=== PATIENT | male | born 1955 | race Caucasian/White ===

== ENCOUNTER 2021-02-16 20:27 | Inpatient (IN) ==
[2021-02-16] MEDS ORDERED: 0.9 % Sodium Chloride 500 ML IV ONE (22:12)
[2021-02-16 22:19] LABS: Basophils # 0.1 K/mcL (0.0-0.2); Basophils % 0.5 %; Eosinophils # 0.1 K/mcL (0.0-0.6); Eosinophils % 1.2 %; Hematocrit 40.1 % (37.5-50.1); Hemoglobin 13.8 g/dL (12.9-16.9); Immature Granulocytes % 0.5 % (0-4); Lymphocytes # 2.6 K/mcL (0.6-4.6); Lymphocytes % 24.6 %; Mean Corpuscular HGB Conc 34.4 g/dL (31.6-35.5); Mean Corpuscular Hemoglobin 32.6 pg (28.0-33.3); Mean Corpuscular Volume 94.8 fL (83.0-100.0); Mean Platelet Volume 11.1 fL (9.4-12.4); Monocytes # 0.8 K/mcL (0.0-1.3); Monocytes % 7.5 %; Neutrophils # 6.9 K/mcL (1.6-8.9); Platelet Count 166 K/mcL (140-400); Red Blood Count 4.23 M/mcL (4.19-5.50); Red Cell Distribution Width 12.9 % (11.5-14.5); Segmented Neutrophils % 65.7 %; White Blood Count 10.4 K/mcL (4.3-11.1)
[2021-02-16 22:34] LABS: Alanine Aminotransferase 9 Units/L (7-52); Albumin 3.6 g/dL (3.5-5.7); Albumin/Globulin Ratio 1.2 (1.1-2.2); Alkaline Phosphatase 76 Units/L (34-104); Aspartate Amino Transferase 18 Units/L (13-39); BUN/Creatinine Ratio 12 (6-26); Bilirubin,Direct 0.3 mg/dL (0.0-0.2); Bilirubin,Indirect 0.7 mg/dL (0.0-1.0); Blood Urea Nitrogen 8 mg/dL (8-23); Calcium 9.5 mg/dL (8.6-10.3); Carbon Dioxide 24 mEq/L (23-29); Chloride 99 mEq/L (98-107); Globulin 2.9 g/dL (2.4-3.5); Glucose 100 mg/dL (70-105); Lipase 8 Units/L (11-82); Osmolality,Calculated 268 (280-300); Potassium 4.3 mEq/L (3.5-5.1); Sodium 130 mEq/L (136-145); Total Protein 6.5 g/dL (6.4-8.9); eGFR For African Americans > 60 (> 60); eGFR For Non-African Americans > 60 (> 60)
[2021-02-16] MEDS ORDERED: Isovue-370 500 ML BOTTLE IVP ONE (23:38)
[2021-02-16] MEDS ORDERED: Morphine Sulfate 2 MG/ML SYRINGE IVP ONE (23:39)
[2021-02-16 23:53] LABS: Bilirubin,Urine Negative (Negative); Blood,Urine Negative (Negative); Clarity,Urine Clear (Clear); Color,Urine Light-Yellow (Yellow); Glucose,Urine (UA) Normal (Normal); Ketones,Urine Negative (Negative); Leukocyte Esterase,Urine Negative (Negative); Nitrite,Urine Negative (Negative); Protein,Urine Negative (Neg-Trace); Specific Gravity,Urine 1.013 (1.010-1.025); Urobilinogen,Urine Normal (Normal)
[2021-02-17 02:04] LABS: INR 1.2; Prothrombin Time 13.2 Seconds (9.4-12.1)
[2021-02-17] MEDS ORDERED: Naloxone 0.4 MG/ML INJ IVP PRN ×2 (02:26→13:53)
[2021-02-17] MEDS ORDERED: cefTRIAXone 2,000 MG in Water for inj. (sterile) 20 ML IVP SCH (03:00)
[2021-02-17] MEDS ORDERED: Morphine Sulfate 2 MG/ML SYRINGE IVP ONE (03:42)
[2021-02-17] MEDS ORDERED: Ringers Solution, Lactated 500 ML IVC SCH (06:00)
[2021-02-17] MEDS ORDERED: Pantoprazole 40 MG VIAL IVP SCH (06:30)
[2021-02-17 07:22] LABS: Hemoglobin 14.4 g/dL (12.9-16.9); Mean Corpuscular HGB Conc 35.1 g/dL (31.6-35.5); Mean Corpuscular Hemoglobin 33.4 pg (28.0-33.3); Mean Corpuscular Volume 95.1 fL (83.0-100.0); Platelet Count 170 K/mcL (140-400); Red Blood Count 4.31 M/mcL (4.19-5.50); Red Cell Distribution Width 12.7 % (11.5-14.5)
[2021-02-17 07:43] LABS: BUN/Creatinine Ratio 11 (6-26); Blood Urea Nitrogen 8 mg/dL (8-23); Calcium 9.2 mg/dL (8.6-10.3); Carbon Dioxide 23 mEq/L (23-29); Chloride 99 mEq/L (98-107); Glucose 110 mg/dL (70-105); Magnesium 1.8 mg/dL (1.6-2.6); Osmolality,Calculated 269 (280-300); Potassium 4.3 mEq/L (3.5-5.1); Sodium 130 mEq/L (136-145); eGFR For African Americans > 60 (> 60); eGFR For Non-African Americans > 60 (> 60)
[2021-02-17] MEDS ORDERED: 0.9 % Sodium Chloride 1,000 ML IVC SCH (09:30)
[2021-02-17] MEDS ORDERED: Ketorolac 15 MG/ML VIAL IVP ONE (09:37)
[2021-02-17] MEDS ORDERED: Ondansetron 4 MG/2 ML VIAL IVP PRN (09:57)
[2021-02-17] MEDS ORDERED: *HR* Propofol 200 MG/20 ML VIAL IVP ONE (11:18)
[2021-02-17] MEDS ORDERED: *HR* FentaNYL (PF) 100 MCG/2 ML VIAL ONE ×2 (11:18→12:07)
[2021-02-17] MEDS ORDERED: *HR* Rocuronium Bromide 50 MG/5 ML VIAL ONE (11:19)
[2021-02-17] MEDS ORDERED: Ondansetron 4 MG/2 ML VIAL ONE (11:19)
[2021-02-17] MEDS ORDERED: Lidocaine HCL 4 ML Topical Solution (Laryng-O-Jet Kit Sterile Pak) TP ONE ×2 (11:19→16:05)
[2021-02-17] MEDS ORDERED: Lidocaine -MPF 2% 5 ML VIAL ONE (11:19)
[2021-02-17] MEDS ORDERED: *HR* Midazolam HCl 2 MG/2 ML VIAL ONE (11:23)
[2021-02-17] MEDS ORDERED: Ipratropium/Albuterol Neb 3 ML ONE (11:29)
[2021-02-17] MEDS ORDERED: Ipratropium/Albuterol Neb 3 ML IH ONE (11:31)
[2021-02-17] MEDS ORDERED: *HR* Vasopressin 20 UNIT/ML VIAL ONE (11:42)
[2021-02-17] MEDS ORDERED: Albumin Human 5% 12.5 GM/250 ML IV.SOLN ONE (11:42)
[2021-02-17] MEDS ORDERED: Sugammadex Sodium 200 MG/2 ML VIAL IV ONE (12:38)
[2021-02-17] MEDS ORDERED: *HR* HYDROmorphone (PF) 1 MG/ML SYRINGE IVP PRN (12:51)
[2021-02-17] MEDS: 0.9 % Sodium Chloride 1,000 ML IVC SCH (15:26)
[2021-02-17] MEDS: *HR* Heparin 5,000 UNIT/ML VIAL SQ SCH (17:46)
[2021-02-17] MEDS ORDERED: *HR* Heparin 5,000 UNIT/ML VIAL SQ SCH (18:00)
[2021-02-17] MEDS ORDERED: Ketorolac 30 MG/ML VIAL IM PRN (18:40)
[2021-02-17] MEDS: *HR* HYDROmorphone (PF) 1 MG/ML SYRINGE IVP PRN (19:20)
[2021-02-18] MEDS: 0.9 % Sodium Chloride 1,000 ML IVC SCH ×3 (00:12→20:56)
[2021-02-18 01:33] LABS: Hematocrit 41.9 % (37.5-50.1); Hemoglobin 14.3 g/dL (12.9-16.9); Mean Corpuscular HGB Conc 34.1 g/dL (31.6-35.5); Mean Corpuscular Hemoglobin 32.6 pg (28.0-33.3); Mean Corpuscular Volume 95.4 fL (83.0-100.0); Mean Platelet Volume 11.6 fL (9.4-12.4); Platelet Count 155 K/mcL (140-400); Red Blood Count 4.39 M/mcL (4.19-5.50); Red Cell Distribution Width 12.7 % (11.5-14.5); White Blood Count 9.1 K/mcL (4.3-11.1)
[2021-02-18 01:53] LABS: BUN/Creatinine Ratio 17 (6-26); Blood Urea Nitrogen 14 mg/dL (8-23); Calcium 8.7 mg/dL (8.6-10.3); Carbon Dioxide 20 mEq/L (23-29); Chloride 102 mEq/L (98-107); Glucose 132 mg/dL (70-105); Magnesium 1.6 mg/dL (1.6-2.6); Osmolality,Calculated 276 (280-300); Phosphorous 4.2 mg/dL (2.7-4.5); Potassium 4.6 mEq/L (3.5-5.1); Sodium 132 mEq/L (136-145); eGFR For African Americans > 60 (> 60); eGFR For Non-African Americans > 60 (> 60)
[2021-02-18] MEDS: Pantoprazole 40 MG VIAL IVP SCH (05:42)
[2021-02-18] MEDS: *HR* HYDROmorphone (PF) 1 MG/ML SYRINGE IVP PRN ×2 (05:42→10:56)
[2021-02-18] MEDS: *HR* Heparin 5,000 UNIT/ML VIAL SQ SCH ×2 (05:42→18:33)
[2021-02-18] MEDS ORDERED: Chloraseptic Spray 177 ML BOTTLE MM PRN (08:26)
[2021-02-19] MEDS: *HR* HYDROmorphone (PF) 1 MG/ML SYRINGE IVP PRN ×3 (01:45→08:03)
[2021-02-19] MEDS: Pantoprazole 40 MG VIAL IVP SCH (05:30)
[2021-02-19] MEDS: *HR* Heparin 5,000 UNIT/ML VIAL SQ SCH ×2 (05:30→16:58)
[2021-02-19 06:29] LABS: Hematocrit 38.3 % (37.5-50.1); Hemoglobin 13.1 g/dL (12.9-16.9); Mean Corpuscular HGB Conc 34.2 g/dL (31.6-35.5); Mean Corpuscular Hemoglobin 32.9 pg (28.0-33.3); Mean Corpuscular Volume 96.2 fL (83.0-100.0); Mean Platelet Volume 11.9 fL (9.4-12.4); Platelet Count 140 K/mcL (140-400); Red Blood Count 3.98 M/mcL (4.19-5.50); Red Cell Distribution Width 12.8 % (11.5-14.5); White Blood Count 10.9 K/mcL (4.3-11.1)
[2021-02-19] MEDS: 0.9 % Sodium Chloride 1,000 ML IVC SCH (06:36)
[2021-02-19 07:59] LABS: Alanine Aminotransferase 6 Units/L (7-52); Albumin 3.1 g/dL (3.5-5.7); Albumin/Globulin Ratio 1.1 (1.1-2.2); Alkaline Phosphatase 46 Units/L (34-104); Aspartate Amino Transferase 12 Units/L (13-39); BUN/Creatinine Ratio 25 (6-26); Bilirubin,Direct 0.3 mg/dL (0.0-0.2); Bilirubin,Indirect 0.8 mg/dL (0.0-1.0); Bilirubin,Total 1.1 mg/dL (0.3-1.0); Blood Urea Nitrogen 17 mg/dL (8-23); Calcium 9.1 mg/dL (8.6-10.3); Carbon Dioxide 23 mEq/L (23-29); Chloride 108 mEq/L (98-107); Globulin 2.7 g/dL (2.4-3.5); Glucose 97 mg/dL (70-105); Magnesium 1.9 mg/dL (1.6-2.6); Osmolality,Calculated 275 (280-300); Phosphorous 2.7 mg/dL (2.7-4.5); Potassium 4.3 mEq/L (3.5-5.1); Sodium 132 mEq/L (136-145); Total Protein 5.8 g/dL (6.4-8.9); eGFR For African Americans > 60 (> 60); eGFR For Non-African Americans > 60 (> 60)
[2021-02-19] MEDS: Spironolactone 25 MG TABLET GTUBE SCH (10:47)
[2021-02-19] MEDS: Ketorolac 30 MG/ML VIAL IM PRN ×2 (10:48→16:56)
[2021-02-19] MEDS: Ipratropium/Albuterol Neb 3 ML IH SCH ×3 (10:58→19:34)
[2021-02-19] MEDS: Albumin 25% 25gram/100mL 25 GM/100 ML IV.SOLN IVPB SCH ×2 (16:57→22:11)
[2021-02-19] MEDS: Furosemide 20 MG/2 ML VIAL IVP SCH (16:57)
[2021-02-20] MEDS: Ketorolac 30 MG/ML VIAL IM PRN ×3 (03:15→17:29)
[2021-02-20] MEDS: Ipratropium/Albuterol Neb 3 ML IH SCH ×4 (03:52→20:20)
[2021-02-20 04:48] LABS: Basophils % 0.2 %; Eosinophils # 0.1 K/mcL (0.0-0.6); Hematocrit 33.3 % (37.5-50.1); Immature Granulocytes % 0.6 % (0-4); Lymphocytes # 1.6 K/mcL (0.6-4.6); Lymphocytes % 19.7 %; Mean Corpuscular Hemoglobin 32.1 pg (28.0-33.3); Mean Corpuscular Volume 97.1 fL (83.0-100.0); Mean Platelet Volume 11.7 fL (9.4-12.4); Monocytes % 11.9 %; Neutrophils # 5.5 K/mcL (1.6-8.9); Platelet Count 126 K/mcL (140-400); Red Blood Count 3.43 M/mcL (4.19-5.50); Red Cell Distribution Width 12.9 % (11.5-14.5); Segmented Neutrophils % 66.6 %; White Blood Count 8.3 K/mcL (4.3-11.1)
[2021-02-20 04:59] LABS: Alanine Aminotransferase 5 Units/L (7-52); Albumin 3.3 g/dL (3.5-5.7); Albumin/Globulin Ratio 1.3 (1.1-2.2); Alkaline Phosphatase 35 Units/L (34-104); Aspartate Amino Transferase 10 Units/L (13-39); BUN/Creatinine Ratio 31 (6-26); Bilirubin,Total 1.4 mg/dL (0.3-1.0); Blood Urea Nitrogen 25 mg/dL (8-23); Calcium 9.2 mg/dL (8.6-10.3); Carbon Dioxide 23 mEq/L (23-29); Chloride 103 mEq/L (98-107); Globulin 2.5 g/dL (2.4-3.5); Glucose 110 mg/dL (70-105); Magnesium 2.1 mg/dL (1.6-2.6); Osmolality,Calculated 283 (280-300); Phosphorous 3.1 mg/dL (2.7-4.5); Potassium 3.9 mEq/L (3.5-5.1); Sodium 134 mEq/L (136-145); Total Protein 5.8 g/dL (6.4-8.9); eGFR For African Americans > 60 (> 60); eGFR For Non-African Americans > 60 (> 60)
[2021-02-20] MEDS: Pantoprazole 40 MG VIAL IVP SCH (05:19)
[2021-02-20] MEDS: *HR* Heparin 5,000 UNIT/ML VIAL SQ SCH ×2 (05:20→17:22)
[2021-02-20] MEDS: Albumin 25% 25gram/100mL 25 GM/100 ML IV.SOLN IVPB SCH ×2 (09:40→20:40)
[2021-02-20] MEDS: Spironolactone 25 MG TABLET GTUBE SCH (09:40)
[2021-02-20] MEDS: Furosemide 20 MG/2 ML VIAL IVP SCH (09:41)
[2021-02-21 03:21] LABS: Hematocrit 32.7 % (37.5-50.1); Mean Corpuscular HGB Conc 33.6 g/dL (31.6-35.5); Mean Corpuscular Hemoglobin 32.6 pg (28.0-33.3); Mean Platelet Volume 11.1 fL (9.4-12.4); Platelet Count 160 K/mcL (140-400); Red Blood Count 3.37 M/mcL (4.19-5.50); Red Cell Distribution Width 12.7 % (11.5-14.5); White Blood Count 8.2 K/mcL (4.3-11.1)
[2021-02-21 03:35] LABS: Alanine Aminotransferase 5 Units/L (7-52); Albumin 3.7 g/dL (3.5-5.7); Albumin/Globulin Ratio 1.6 (1.1-2.2); Alkaline Phosphatase 37 Units/L (34-104); Aspartate Amino Transferase 12 Units/L (13-39); BUN/Creatinine Ratio 33 (6-26); Bilirubin,Direct 0.7 mg/dL (0.0-0.2); Bilirubin,Indirect 1.1 mg/dL (0.0-1.0); Bilirubin,Total 1.8 mg/dL (0.3-1.0); Blood Urea Nitrogen 28 mg/dL (8-23); Calcium 9.3 mg/dL (8.6-10.3); Carbon Dioxide 23 mEq/L (23-29); Chloride 97 mEq/L (98-107); Globulin 2.3 g/dL (2.4-3.5); Glucose 75 mg/dL (70-105); Osmolality,Calculated 284 (280-300); Potassium 3.9 mEq/L (3.5-5.1); Sodium 135 mEq/L (136-145); eGFR For African Americans > 60 (> 60); eGFR For Non-African Americans > 60 (> 60)
[2021-02-21] MEDS: Ipratropium/Albuterol Neb 3 ML IH SCH ×2 (03:49→09:12)
[2021-02-21] MEDS: *HR* Heparin 5,000 UNIT/ML VIAL SQ SCH ×3 (04:56→18:53)
[2021-02-21] MEDS: Pantoprazole 40 MG VIAL IVP SCH ×2 (04:58→05:00)
[2021-02-21] MEDS: Ketorolac 30 MG/ML VIAL IM PRN ×2 (05:12→18:53)
[2021-02-21] MEDS ORDERED: Spironolactone 25 MG TABLET PO SCH (09:00)
[2021-02-21] MEDS: Furosemide 20 MG/2 ML VIAL IVP SCH (09:10)
[2021-02-21] MEDS: Spironolactone 25 MG TABLET PO SCH (09:10)
[2021-02-21] MEDS: Albumin 25% 25gram/100mL 25 GM/100 ML IV.SOLN IVPB SCH ×2 (09:11→21:05)
[2021-02-21] MEDS: Cyanocobalamin (B-12) 1,000 MCG TABLET PO SCH (09:11)
[2021-02-22] MEDS: Ketorolac 30 MG/ML VIAL IM PRN ×2 (00:34→08:23)
[2021-02-22] MEDS: Pantoprazole 40 MG VIAL IVP SCH (05:12)
[2021-02-22 06:42] LABS: Basophils % 0.3 %; Eosinophils # 0.2 K/mcL (0.0-0.6); Eosinophils % 2.2 %; Hematocrit 33.6 % (37.5-50.1); Hemoglobin 11.3 g/dL (12.9-16.9); Immature Granulocytes % 0.5 % (0-4); Lymphocytes # 1.5 K/mcL (0.6-4.6); Mean Corpuscular HGB Conc 33.6 g/dL (31.6-35.5); Mean Corpuscular Hemoglobin 32.3 pg (28.0-33.3); Mean Platelet Volume 11.4 fL (9.4-12.4); Monocytes # 1.2 K/mcL (0.0-1.3); Monocytes % 13.5 %; Neutrophils # 5.9 K/mcL (1.6-8.9); Platelet Count 179 K/mcL (140-400); Red Cell Distribution Width 12.3 % (11.5-14.5); Segmented Neutrophils % 66.5 %; White Blood Count 8.8 K/mcL (4.3-11.1)
[2021-02-22 07:04] LABS: Alanine Aminotransferase 10 Units/L (7-52); Albumin 3.6 g/dL (3.5-5.7); Albumin/Globulin Ratio 1.6 (1.1-2.2); Alkaline Phosphatase 40 Units/L (34-104); Aspartate Amino Transferase 19 Units/L (13-39); BUN/Creatinine Ratio 35 (6-26); Bilirubin,Direct 0.8 mg/dL (0.0-0.2); Bilirubin,Indirect 0.9 mg/dL (0.0-1.0); Bilirubin,Total 1.7 mg/dL (0.3-1.0); Blood Urea Nitrogen 27 mg/dL (8-23); Calcium 9.1 mg/dL (8.6-10.3); Carbon Dioxide 24 mEq/L (23-29); Chloride 98 mEq/L (98-107); Globulin 2.2 g/dL (2.4-3.5); Glucose 96 mg/dL (70-105); Osmolality,Calculated 277 (280-300); Potassium 3.6 mEq/L (3.5-5.1); Sodium 131 mEq/L (136-145); Total Protein 5.8 g/dL (6.4-8.9); eGFR For African Americans > 60 (> 60); eGFR For Non-African Americans > 60 (> 60)
[2021-02-22] MEDS: Albumin 25% 25gram/100mL 25 GM/100 ML IV.SOLN IVPB SCH ×2 (08:22→21:48)
[2021-02-22] MEDS: polyethylene glycoL 3350 17 GM POWD.PACK PO SCH (08:24)
[2021-02-22] MEDS: Cyanocobalamin (B-12) 1,000 MCG TABLET PO SCH (08:24)
[2021-02-22] MEDS: Spironolactone 25 MG TABLET PO SCH (08:24)
[2021-02-22] MEDS: Furosemide 20 MG/2 ML VIAL IVP SCH (08:24)
[2021-02-22] MEDS: *HR* Heparin 5,000 UNIT/ML VIAL SQ SCH (17:57)
[2021-02-23] MEDS: *HR* Heparin 5,000 UNIT/ML VIAL SQ SCH ×2 (06:05→17:49)
[2021-02-23] MEDS: Pantoprazole 40 MG VIAL IVP SCH (06:05)
[2021-02-23 06:56] LABS: Alanine Aminotransferase 9 Units/L (7-52); Albumin 3.6 g/dL (3.5-5.7); Albumin/Globulin Ratio 1.7 (1.1-2.2); Alkaline Phosphatase 39 Units/L (34-104); Aspartate Amino Transferase 15 Units/L (13-39); BUN/Creatinine Ratio 38 (6-26); Bilirubin,Direct 0.9 mg/dL (0.0-0.2); Bilirubin,Indirect 0.9 mg/dL (0.0-1.0); Bilirubin,Total 1.8 mg/dL (0.3-1.0); Blood Urea Nitrogen 26 mg/dL (8-23); Calcium 9.2 mg/dL (8.6-10.3); Carbon Dioxide 20 mEq/L (23-29); Chloride 97 mEq/L (98-107); Globulin 2.1 g/dL (2.4-3.5); Glucose 100 mg/dL (70-105); Osmolality,Calculated 273 (280-300); Potassium 3.9 mEq/L (3.5-5.1); Sodium 129 mEq/L (136-145); Total Protein 5.7 g/dL (6.4-8.9); eGFR For African Americans > 60 (> 60); eGFR For Non-African Americans > 60 (> 60)
[2021-02-23] MEDS: Furosemide 20 MG/2 ML VIAL IVP SCH (07:49)
[2021-02-23] MEDS: Spironolactone 25 MG TABLET PO SCH (07:49)
[2021-02-23] MEDS: polyethylene glycoL 3350 17 GM POWD.PACK PO SCH ×2 (07:50→20:25)
[2021-02-23] MEDS: Albumin 25% 25gram/100mL 25 GM/100 ML IV.SOLN IVPB SCH ×3 (07:50→22:43)
[2021-02-23] MEDS: Cyanocobalamin (B-12) 1,000 MCG TABLET PO SCH (07:51)
[2021-02-23 09:43] LABS: Basophils % 0.3 %; Eosinophils # 0.1 K/mcL (0.0-0.6); Eosinophils % 0.8 %; Hematocrit 34.4 % (37.5-50.1); Hemoglobin 11.5 g/dL (12.9-16.9); Immature Granulocytes % 0.8 % (0-4); Lymphocytes # 1.5 K/mcL (0.6-4.6); Lymphocytes % 12.8 %; Mean Corpuscular HGB Conc 33.4 g/dL (31.6-35.5); Mean Corpuscular Hemoglobin 31.9 pg (28.0-33.3); Mean Corpuscular Volume 95.6 fL (83.0-100.0); Mean Platelet Volume 11.5 fL (9.4-12.4); Monocytes # 1.1 K/mcL (0.0-1.3); Monocytes % 9.7 %; Neutrophils # 8.8 K/mcL (1.6-8.9); Platelet Count 194 K/mcL (140-400); Red Cell Distribution Width 12.1 % (11.5-14.5); Segmented Neutrophils % 75.6 %; White Blood Count 11.6 K/mcL (4.3-11.1)
[2021-02-23] MEDS: Ondansetron 4 MG/2 ML VIAL IVP PRN (16:29)
[2021-02-24] MEDS: Ondansetron 4 MG/2 ML VIAL IVP PRN ×3 (03:40→22:43)
[2021-02-24] MEDS: *HR* Heparin 5,000 UNIT/ML VIAL SQ SCH ×2 (05:31→18:35)
[2021-02-24 07:11] LABS: Basophils % 0.2 %; Immature Granulocytes % 0.9 % (0-4); Mean Corpuscular Hemoglobin 32.3 pg (28.0-33.3); Monocytes % 9.8 %
[2021-02-24 07:28] LABS: Alanine Aminotransferase 12 Units/L (7-52); Albumin 3.9 g/dL (3.5-5.7); Albumin/Globulin Ratio 1.6 (1.1-2.2); Alkaline Phosphatase 47 Units/L (34-104); Aspartate Amino Transferase 19 Units/L (13-39); BUN/Creatinine Ratio 35 (6-26); Bilirubin,Direct 0.6 mg/dL (0.0-0.2); Bilirubin,Indirect 0.8 mg/dL (0.0-1.0); Bilirubin,Total 1.4 mg/dL (0.3-1.0); Blood Urea Nitrogen 30 mg/dL (8-23); Calcium 9.6 mg/dL (8.6-10.3); Carbon Dioxide 24 mEq/L (23-29); Chloride 94 mEq/L (98-107); Globulin 2.4 g/dL (2.4-3.5); Glucose 103 mg/dL (70-105); Magnesium 2.2 mg/dL (1.6-2.6); Osmolality,Calculated 278 (280-300); Sodium 131 mEq/L (136-145); Total Protein 6.3 g/dL (6.4-8.9); eGFR For African Americans > 60 (> 60); eGFR For Non-African Americans > 60 (> 60)
[2021-02-24 09:02] LABS: Eosinophils # 0.1 K/mcL (0.0-0.6); Eosinophils % 0.5 %; Hemoglobin 13.1 g/dL (12.9-16.9); Lymphocytes # 1.7 K/mcL (0.6-4.6); Lymphocytes % 12.8 %; Mean Corpuscular HGB Conc 33.6 g/dL (31.6-35.5); Mean Corpuscular Volume 96.1 fL (83.0-100.0); Mean Platelet Volume 11.4 fL (9.4-12.4); Monocytes # 1.3 K/mcL (0.0-1.3); Neutrophils # 10.2 K/mcL (1.6-8.9); Platelet Count 262 K/mcL (140-400); Red Blood Count 4.06 M/mcL (4.19-5.50); Red Cell Distribution Width 12.3 % (11.5-14.5); Segmented Neutrophils % 75.8 %; White Blood Count 13.5 K/mcL (4.3-11.1)
[2021-02-24] MEDS: polyethylene glycoL 3350 17 GM POWD.PACK PO SCH ×2 (09:54→21:04)
[2021-02-24] MEDS: Cyanocobalamin (B-12) 1,000 MCG TABLET PO SCH (09:55)
[2021-02-24] MEDS: Spironolactone 25 MG TABLET PO SCH (09:55)
[2021-02-24] MEDS: Furosemide 20 MG/2 ML VIAL IVP SCH (09:59)
[2021-02-24] MEDS: Albumin 25% 25gram/100mL 25 GM/100 ML IV.SOLN IVPB SCH ×3 (10:00→23:57)
[2021-02-24] MEDS: Sennosides 8.6 MG TABLET PO SCH ×2 (11:24→21:04)
[2021-02-24 19:31] VITALS: O2SAT 96
[2021-02-24 23:28] VITALS: PULSE 71
[2021-02-25 05:31] LABS: Basophils % 0.3 %; Eosinophils # 0.1 K/mcL (0.0-0.6); Eosinophils % 1.1 %; Hematocrit 37.4 % (37.5-50.1); Hemoglobin 12.7 g/dL (12.9-16.9); Immature Granulocytes % 0.7 % (0-4); Lymphocytes # 1.6 K/mcL (0.6-4.6); Lymphocytes % 14.4 %; Mean Corpuscular Volume 94.2 fL (83.0-100.0); Monocytes # 1.3 K/mcL (0.0-1.3); Monocytes % 11.5 %; Neutrophils # 7.9 K/mcL (1.6-8.9); Platelet Count 247 K/mcL (140-400); Red Blood Count 3.97 M/mcL (4.19-5.50); Red Cell Distribution Width 12.2 % (11.5-14.5)
[2021-02-25 05:52] LABS: BUN/Creatinine Ratio 41 (6-26); Blood Urea Nitrogen 32 mg/dL (8-23); Calcium 9.5 mg/dL (8.6-10.3); Carbon Dioxide 22 mEq/L (23-29); Chloride 94 mEq/L (98-107); Glucose 97 mg/dL (70-105); Magnesium 2.3 mg/dL (1.6-2.6); Osmolality,Calculated 277 (280-300); Potassium 4.1 mEq/L (3.5-5.1); Sodium 130 mEq/L (136-145); eGFR For African Americans > 60 (> 60); eGFR For Non-African Americans > 60 (> 60)
[2021-02-25] MEDS: *HR* Heparin 5,000 UNIT/ML VIAL SQ SCH (05:52)
[2021-02-25 05:53] LABS: Albumin 3.8 g/dL (3.5-5.7); Albumin/Globulin Ratio 1.5 (1.1-2.2); Bilirubin,Direct 0.5 mg/dL (0.0-0.2); Bilirubin,Indirect 0.6 mg/dL (0.0-1.0); Bilirubin,Total 1.1 mg/dL (0.3-1.0); Globulin 2.5 g/dL (2.4-3.5); Total Protein 6.3 g/dL (6.4-8.9)
[2021-02-25] MEDS ORDERED: Prochlorperazine 10 MG/2 ML VIAL IVP PRN (05:58)
[2021-02-25 07:30] VITALS: BP 127/76; TEMP 97.7
[2021-02-25] MEDS: Sennosides 8.6 MG TABLET PO SCH (10:11)
[2021-02-25] MEDS: Furosemide 20 MG/2 ML VIAL IVP SCH (10:12)
[2021-02-25] MEDS: Cyanocobalamin (B-12) 1,000 MCG TABLET PO SCH (10:12)
[2021-02-25] MEDS: Spironolactone 25 MG TABLET PO SCH (10:12)
[2021-02-25] MEDS: Albumin 25% 25gram/100mL 25 GM/100 ML IV.SOLN IVPB SCH (10:13)
[2021-02-25] MEDS: polyethylene glycoL 3350 17 GM POWD.PACK PO SCH (10:16)
== END 2021-02-25 12:15 | disposition home or self-care (01) | DRG 330 ==
LOC: EMEROOARM 20:27 → 3ANU 20:27 → OBSVTOIN 02-17 02:41 → SUATTDRO 02-17 02:41 → 3ANU 02-17 06:24
PROVIDERS: ADMIT Family Medicine; ATTEND Pharmacist

== ENCOUNTER 2021-12-14 07:32 | Inpatient (IN) ==
[2021-12-14] MEDS ORDERED: Iopamidol - 370 500 ML MLS IVP ONE (07:51)
[2021-12-14 08:19] LABS: Hematocrit 31.6 % (37.5-50.1); Mean Corpuscular HGB Conc 34.8 g/dL (31.6-35.5); Mean Corpuscular Hemoglobin 32.6 pg (28.0-33.3); Mean Corpuscular Volume 93.8 fL (83.0-100.0); Mean Platelet Volume 12.2 fL (9.4-12.4); Platelet Count 210 K/mcL (140-400); Red Blood Count 3.37 M/mcL (4.19-5.50); White Blood Count 5.6 K/mcL (4.3-11.1)
[2021-12-14 09:45] LABS: Alanine Aminotransferase 6 Units/L (7-52); Albumin 4.2 g/dL (3.5-5.7); Albumin/Globulin Ratio 1.2 (1.1-2.2); Alkaline Phosphatase 48 Units/L (34-104); Amylase 24 Units/L (29-103); Aspartate Amino Transferase 23 Units/L (13-39); BUN/Creatinine Ratio 27 (6-26); Bilirubin,Direct 0.2 mg/dL (0.0-0.2); Bilirubin,Indirect 0.9 mg/dL (0.0-1.0); Bilirubin,Total 1.1 mg/dL (0.3-1.0); Blood Urea Nitrogen 61 mg/dL (8-23); Calcium 9.5 mg/dL (8.6-10.3); Carbon Dioxide 27 mEq/L (23-29); Chloride 85 mEq/L (98-107); Globulin 3.4 g/dL (2.4-3.5); Glucose 134 mg/dL (70-105); Lipase < 3 Units/L (11-82); Osmolality,Calculated 279 (280-300); Potassium 4.9 mEq/L (3.5-5.1); Sodium 125 mEq/L (136-145); Total Protein 7.6 g/dL (6.4-8.9); eGFR For African Americans 34 (> 60); eGFR For Non-African Americans 28 (> 60)
[2021-12-14 10:07] LABS: Hypochromasia Present (Not Present); Monocytes # 1.2 K/mcL (0.0-1.3); Neutrophils # 3.4 K/mcL (1.6-8.9)
[2021-12-14 10:08] LABS: Anisocytosis 1+ (Not Present); Platelet Estimate Normal (Normal); Poikilocytosis 1+ (Not Present)
[2021-12-14] MEDS ORDERED: 0.9 % Sodium Chloride 1,000 ML IVC ONE (10:40)
[2021-12-14] MEDS ORDERED: 0.9 % Sodium Chloride 1,000 ML ONE (10:41)
[2021-12-14] MEDS: Ondansetron 4 MG/2 ML VIAL IVP PRN (12:35)
[2021-12-14] MEDS: 0.9 % Sodium Chloride 1,000 ML IVC SCH ×3 (12:54→19:54)
[2021-12-14 13:30] LABS: Calcium 9.2 mg/dL (8.6-10.3); Potassium 4.2 mEq/L (3.5-5.1)
[2021-12-14] MEDS ORDERED: Lidocaine Jelly 6ml 1 APPL/6 ML JEL.PF.APP MM ONE (14:10)
[2021-12-14] MEDS ORDERED: Tetracaine/Benzocaine/Butamben 1 SPRAY AEROSOL MM ONE (14:10)
[2021-12-14] MEDS: *HR* HYDROmorphone (PF) 1 MG/ML SYRINGE IVP PRN ×3 (14:58→19:55)
[2021-12-14] MEDS: Piperacillin/Tazobactam 3.375 GM in 0.9 % Sodium Chloride Mini Bag 100 ML IVPB SCH ×2 (16:40→23:05)
[2021-12-14 21:31] LABS: Calcium 8.9 mg/dL (8.6-10.3); Potassium 4.1 mEq/L (3.5-5.1)
[2021-12-15 02:15] LABS: Eosinophils # 0.1 K/mcL (0.0-0.6); Hematocrit 26.8 % (37.5-50.1); Mean Corpuscular Hemoglobin 31.7 pg (28.0-33.3); Mean Corpuscular Volume 93.4 fL (83.0-100.0); Mean Platelet Volume 11.3 fL (9.4-12.4); Platelet Count 182 K/mcL (140-400); Red Blood Count 2.87 M/mcL (4.19-5.50); Red Cell Distribution Width 13.1 % (11.5-14.5); White Blood Count 5.3 K/mcL (4.3-11.1)
[2021-12-15 02:32] LABS: Calcium 8.8 mg/dL (8.6-10.3); Magnesium 2.7 mg/dL (1.6-2.6); Phosphorous 3.2 mg/dL (2.7-4.5)
[2021-12-15 02:44] LABS: Hemoglobin 9.1 g/dL (12.9-16.9)
[2021-12-15 02:59] LABS: Monocytes # 1.1 K/mcL (0.0-1.3); Neutrophils # 3.2 K/mcL (1.6-8.9)
[2021-12-15 03:00] LABS: Platelet Estimate Normal (Normal)
[2021-12-15] MEDS: *HR* HYDROmorphone (PF) 1 MG/ML SYRINGE IVP PRN ×2 (05:27→09:12)
[2021-12-15] MEDS: Piperacillin/Tazobactam 3.375 GM in 0.9 % Sodium Chloride Mini Bag 100 ML IVPB SCH ×3 (08:46→23:24)
[2021-12-15] MEDS: Pantoprazole 40 MG VIAL IVP SCH (08:46)
[2021-12-15] MEDS: 0.9 % Sodium Chloride 1,000 ML IVC SCH ×3 (08:47→23:25)
[2021-12-15 11:46] LABS: Bilirubin,Urine Negative (Negative); Blood,Urine Negative (Negative); Clarity,Urine Clear (Clear); Color,Urine Yellow (Yellow); Glucose,Urine (UA) Normal (Normal); Ketones,Urine 10 mg/dL (Negative); Leukocyte Esterase,Urine Negative (Negative); Nitrite,Urine Negative (Negative); Protein,Urine 30 mg/dL (Neg-Trace); RBC,Urine 0-3 per hpf (0-3); Specific Gravity,Urine 1.026 (1.010-1.025); Squamous Epithelial Cell,Urine Few per hpf (None-Few); Urobilinogen,Urine Normal (Normal); WBC,Urine 0-3 per hpf (0-3)
[2021-12-15] MEDS ORDERED: Ketorolac 30 MG/ML VIAL IVP PRN (12:35)
[2021-12-15] MEDS: Ketorolac 30 MG/ML VIAL IVP PRN (13:18)
[2021-12-15] MEDS: Ipratropium/Albuterol Neb 3 ML IH PRN ×2 (13:40→21:10)
[2021-12-15] MEDS: *HR* Heparin 5,000 UNIT/ML VIAL SQ SCH ×2 (17:10→21:27)
[2021-12-15] MEDS: Ondansetron 4 MG/2 ML VIAL IVP PRN (17:16)
[2021-12-15] MEDS: *HR* HYDROmorphone 2 MG/ML SYRINGE IVP PRN (19:12)
[2021-12-16] MEDS: Ketorolac 30 MG/ML VIAL IVP PRN ×3 (01:23→17:57)
[2021-12-16] MEDS: *HR* Heparin 5,000 UNIT/ML VIAL SQ SCH ×3 (05:52→20:54)
[2021-12-16] MEDS: 0.9 % Sodium Chloride 1,000 ML IVC SCH ×3 (06:12→20:43)
[2021-12-16 07:22] LABS: Hematocrit 25.8 % (37.5-50.1); Hemoglobin 8.6 g/dL (12.9-16.9); Mean Corpuscular HGB Conc 33.3 g/dL (31.6-35.5); Mean Corpuscular Hemoglobin 32.1 pg (28.0-33.3); Mean Corpuscular Volume 96.3 fL (83.0-100.0); Nucleated Red Blood Cells 0.3 /100 WBC (0); Platelet Count 162 K/mcL (140-400); Red Blood Count 2.68 M/mcL (4.19-5.50); Red Cell Distribution Width 13.2 % (11.5-14.5); White Blood Count 6.6 K/mcL (4.3-11.1)
[2021-12-16 07:40] LABS: BUN/Creatinine Ratio 32 (6-26); Blood Urea Nitrogen 31 mg/dL (8-23); Calcium 8.2 mg/dL (8.6-10.3); Carbon Dioxide 26 mEq/L (23-29); Chloride 95 mEq/L (98-107); Glucose 98 mg/dL (70-105); Osmolality,Calculated 277 (280-300); Potassium 3.7 mEq/L (3.5-5.1); Sodium 130 mEq/L (136-145); eGFR For African Americans > 60 (> 60); eGFR For Non-African Americans > 60 (> 60)
[2021-12-16] MEDS: Piperacillin/Tazobactam 3.375 GM in 0.9 % Sodium Chloride Mini Bag 100 ML IVPB SCH ×3 (07:54→23:24)
[2021-12-16] MEDS: Pantoprazole 40 MG VIAL IVP SCH (07:54)
[2021-12-16 07:59] LABS: Lymphocytes # 1.7 K/mcL (0.6-4.6); Monocytes # 0.7 K/mcL (0.0-1.3); Neutrophils # 4.2 K/mcL (1.6-8.9); Platelet Estimate Normal (Normal)
[2021-12-16] MEDS: Ipratropium/Albuterol Neb 3 ML IH PRN ×3 (07:59→23:41)
[2021-12-16] MEDS: *HR* HYDROmorphone 2 MG/ML SYRINGE IVP PRN ×2 (15:38→20:52)
[2021-12-16] MEDS ORDERED: 0.9 % Sodium Chloride 500 ML IV ONE (20:34)
[2021-12-17] MEDS: *HR* HYDROmorphone 2 MG/ML SYRINGE IVP PRN (02:10)
[2021-12-17 03:04] LABS: Basophils % 0.3 %; Eosinophils # 0.1 K/mcL (0.0-0.6); Eosinophils % 1.1 %; Hemoglobin 8.7 g/dL (12.9-16.9); Immature Granulocytes % 5.9 % (0-4); Lymphocytes % 15.1 %; Mean Corpuscular HGB Conc 32.2 g/dL (31.6-35.5); Mean Corpuscular Hemoglobin 31.8 pg (28.0-33.3); Mean Corpuscular Volume 98.5 fL (83.0-100.0); Monocytes # 0.7 K/mcL (0.0-1.3); Neutrophils # 4.3 K/mcL (1.6-8.9); Platelet Count 169 K/mcL (140-400); Red Blood Count 2.74 M/mcL (4.19-5.50); Red Cell Distribution Width 13.5 % (11.5-14.5); Segmented Neutrophils % 66.6 %; White Blood Count 6.4 K/mcL (4.3-11.1)
[2021-12-17 03:24] LABS: BUN/Creatinine Ratio 23 (6-26); Blood Urea Nitrogen 19 mg/dL (8-23); Calcium 8.4 mg/dL (8.6-10.3); Carbon Dioxide 24 mEq/L (23-29); Chloride 104 mEq/L (98-107); Glucose 79 mg/dL (70-105); Osmolality,Calculated 287 (280-300); Potassium 3.9 mEq/L (3.5-5.1); Sodium 138 mEq/L (136-145); eGFR For African Americans > 60 (> 60); eGFR For Non-African Americans > 60 (> 60)
[2021-12-17 03:34] LABS: Hypochromasia Present (Not Present); Platelet Estimate Normal (Normal); Polychromasia 1+ (Not Present)
[2021-12-17] MEDS: 0.9 % Sodium Chloride 1,000 ML IVC SCH (04:48)
[2021-12-17] MEDS: *HR* Heparin 5,000 UNIT/ML VIAL SQ SCH ×3 (04:48→22:37)
[2021-12-17] MEDS: Ketorolac 30 MG/ML VIAL IVP PRN ×2 (04:54→18:09)
[2021-12-17] MEDS: Ipratropium/Albuterol Neb 3 ML IH PRN ×2 (07:25→15:22)
[2021-12-17] MEDS: Piperacillin/Tazobactam 3.375 GM in 0.9 % Sodium Chloride Mini Bag 100 ML IVPB SCH ×2 (08:39→16:16)
[2021-12-17] MEDS: Pantoprazole 40 MG VIAL IVP SCH (08:40)
[2021-12-17 09:29] LABS: A.calcoaceticus-baumannii cplx Not Detected (Not Detect); Bacteroides fragilis by PCR Not Detected (Not Detect); Candida albicans by PCR Not Detected (Not Detect); Candida auris by PCR Not Detected (Not Detect); Candida glabrata by PCR Not Detected (Not Detect); Candida krusei by PCR Not Detected (Not Detect); Candida parapsilosis by PCR Not Detected (Not Detect); Candida tropicalis by PCR Not Detected (Not Detect); Crypto. neoformans/gattii PCR Not Detected (Not Detect); Enterobacter cloacae Cmplx PCR Not Detected (Not Detect); Enterobacterales by PCR Not Detected (Not Detect); Enterococcus faecalis by PCR Not Detected (Not Detect); Enterococcus faecium by PCR Not Detected (Not Detect); Escherichia coli by PCR Not Detected (Not Detect); Klebs. pneumoniae group by PCR Not Detected (Not Detect); Klebsiella aerogenes by PCR Not Detected (Not Detect); Klebsiella oxytoca by PCR Not Detected (Not Detect); Proteus by PCR Not Detected (Not Detect); Pseudomonas aeruginosa by PCR Not Detected (Not Detect); Salmonella species by PCR Not Detected (Not Detect); Serratia marcescens by PCR Not Detected (Not Detect); Staph epidermidis by PCR Not Detected (Not Detect); Staph lugdunensis by PCR Not Detected (Not Detect); Staphylococcus aureus by PCR Not Detected (Not Detect); Staphylococcus by PCR Not Detected (Not Detect); Stenotrophomonas maltophilia Not Detected (Not Detect); Streptococcus agalactiae(B)PCR Not Detected (Not Detect); Streptococcus by PCR Not Detected (Not Detect); Streptococcus pneumoniae PCR Not Detected (Not Detect); Streptococcus pyogenes (A) PCR Not Detected (Not Detect)
[2021-12-17] MEDS: polyethylene glycoL 3350 17 GM POWD.PACK PO SCH (15:23)
[2021-12-17] MEDS: Furosemide 40 MG TABLET PO SCH (16:16)
[2021-12-18] MEDS: Ketorolac 30 MG/ML VIAL IVP PRN ×2 (00:32→09:01)
[2021-12-18] MEDS: Piperacillin/Tazobactam 3.375 GM in 0.9 % Sodium Chloride Mini Bag 100 ML IVPB SCH ×3 (00:33→15:48)
[2021-12-18] MEDS: *HR* Heparin 5,000 UNIT/ML VIAL SQ SCH ×2 (05:11→12:56)
[2021-12-18 07:45] VITALS: O2SAT 98
[2021-12-18 08:51] LABS: Eosinophils # 0.1 K/mcL (0.0-0.6); Hematocrit 26.2 % (37.5-50.1); Hemoglobin 8.6 g/dL (12.9-16.9); Mean Corpuscular HGB Conc 32.8 g/dL (31.6-35.5); Mean Corpuscular Volume 97.4 fL (83.0-100.0); Mean Platelet Volume 10.4 fL (9.4-12.4); Platelet Count 160 K/mcL (140-400); Red Blood Count 2.69 M/mcL (4.19-5.50); Red Cell Distribution Width 13.8 % (11.5-14.5); White Blood Count 5.3 K/mcL (4.3-11.1)
[2021-12-18 08:54] LABS: Alanine Aminotransferase 8 Units/L (7-52); Albumin 2.7 g/dL (3.5-5.7); Alkaline Phosphatase 35 Units/L (34-104); Aspartate Amino Transferase 13 Units/L (13-39); BUN/Creatinine Ratio 19 (6-26); Bilirubin,Total 1.1 mg/dL (0.3-1.0); Blood Urea Nitrogen 13 mg/dL (8-23); Calcium 8.1 mg/dL (8.6-10.3); Carbon Dioxide 23 mEq/L (23-29); Chloride 102 mEq/L (98-107); Globulin 2.6 g/dL (2.4-3.5); Glucose 86 mg/dL (70-105); Osmolality,Calculated 277 (280-300); Potassium 3.6 mEq/L (3.5-5.1); Sodium 134 mEq/L (136-145); Total Protein 5.3 g/dL (6.4-8.9); eGFR For African Americans > 60 (> 60); eGFR For Non-African Americans > 60 (> 60)
[2021-12-18] MEDS: Furosemide 40 MG TABLET PO SCH ×2 (08:54→15:48)
[2021-12-18] MEDS: Pantoprazole 40 MG VIAL IVP SCH (08:54)
[2021-12-18] MEDS: polyethylene glycoL 3350 17 GM POWD.PACK PO SCH (08:55)
[2021-12-18 09:48] LABS: Lymphocytes # 0.6 K/mcL (0.6-4.6); Monocytes # 0.2 K/mcL (0.0-1.3); Neutrophils # 4.4 K/mcL (1.6-8.9); Platelet Estimate Normal (Normal); Reactive Lymphocytes Present (Not Present)
[2021-12-18] MEDS: Ipratropium/Albuterol Neb 3 ML IH PRN (10:45)
[2021-12-18 14:57] VITALS: BP 120/74; PULSE 83; TEMP 98.9
[2021-12-18] MEDS ORDERED: *HR* OxyCODONE Immed Rel 5 MG TABLET PO PRN (15:11)
[2021-12-18] MEDS ORDERED: *HR* HYDROcodone/Acet 5/325 mg TABLET PO PRN (15:28)
== END 2021-12-18 17:13 | disposition home or self-care (01) | DRG 357 ==
LOC: EMEROOARM 07:32 → INTOOBSV 10:44 → 3ANU 10:44
PROVIDERS: ADMIT Surgery; ATTEND Surgery